=== PATIENT | male | born 1960 | race Caucasian/White ===

== ENCOUNTER → 2019-11-05 | Outpatient (CLI) | payer OTHER ==
[~2019-11-05] MED LIST: ABIR250T PO; EFFE37.5 PO; IBUP80TA PO; LOPE-39 PO; MAPA500C PO; PRED10PA2 PO; PRED5PAK PO; PRED5TA PO; VOLT1GEL15 TOP; XTAN40CA PO; ZYTI250T PO
--- NOTE | 2019-11-05 15:20 | REP ---
WHOLE BODY RADIONUCLIDE BONE SCAN: HISTORY: Neoplasm of bone of uncertain behavior. Positive MRI study dated October 13, 2019. TECHNIQUE: 22.0 mCi technetium 99m MDP is injected and standard whole body bone scan imaging is acquired. SCINTIGRAPHIC FINDINGS: There is a metastatic pattern of multifocal increased uptake in the axial skeleton. Most extensive involvement is as noted on MRI involving the right trisha pelvis. This involves the acetabular region, ischium and the supra-acetabular iliac bone. There is a lesion in the superior pubic ramus and symphysis on the right. Other sites include the sacrum, L5, L4 and L3, left intertrochanteric femur, the proximal humerus on the right, multiple bilateral posterior ribs and of the right skull base or mastoid region. Also noted is increased uptake in the right kidney compared to the left raising question of right-sided obstructive uropathy. Adenopathy is noted in the pelvis on review of the recent MRI study. IMPRESSION: Metastatic disease pattern. Most likely possibility is prostate malignancy with adenopathy and skeletal disease. However, other primary sites remain in the differential. There may be obstructive uropathy of the right kidney. Recommend CT scanning of the chest abdomen and pelvis. Preferably with IV contrast. Electronically Signed by Neeraj aKmara MD 11/05/2019 05:05 P
== END ==
LOC: M RAD 10:20
PROVIDERS: ATTEND Family Medicine
DX: C79.51 Secondary malignant neoplasm of bone (principal); R59.0 Localized enlarged lymph nodes
CPT/HCPCS: 78306; A9503

== ENCOUNTER → 2019-12-24 | Outpatient (CLI) | payer OTHER ==
[~2019-12-24] MED LIST changes: -EFFE37.5 PO
== END ==
LOC: M ONCR 09:54
PROVIDERS: ATTEND General Practice
DX: C61 Malignant neoplasm of prostate (principal); C79.9 Secondary malignant neoplasm of unspecified site

== ENCOUNTER → 2021-11-10 | Outpatient (CLI) | payer OTHER ==
[~2021-11-10] MED LIST changes: +ACET300T48 PO; +DICL1GEL3 TOP; +EFFE37.5 PO; +TRAM50TA2 PO
== END ==
LOC: M ONCR 14:38
PROVIDERS: ATTEND General Practice
DX: C79.51 Secondary malignant neoplasm of bone (principal); C61 Malignant neoplasm of prostate; F17.210 Nicotine dependence, cigarettes, uncomplicated; G89.3 Neoplasm related pain (acute) (chronic); R53.83 Other fatigue; Z79.51 Long term (current) use of inhaled steroids; Z79.899 Other long term (current) drug therapy; Z80.9 Family history of malignant neoplasm, unspecified; Z88.1 Allergy status to other antibiotic agents; Z91.030 Bee allergy status; Z92.29 Personal history of other drug therapy

== ENCOUNTER → 2021-12-01 | Outpatient (CLI) | payer OTHER ==
[~2021-12-01] MED LIST changes: +MORP15TA2 PO; +ONDA-83 PO
== END ==
LOC: M ONCR 14:28
PROVIDERS: ATTEND General Practice
DX: C79.51 Secondary malignant neoplasm of bone (principal); M21.372 Foot drop, left foot

== ENCOUNTER 2021-12-13 13:49 | Outpatient (RCR) | payer OTHER ==
[2021-12-18] MEDS ORDERED: MORP15TA2 PO (15:24)
[2021-12-19] MEDS ORDERED: MORP15TA2 PO (09:50)
== END 2021-12-17 ==
LOC: M ONCR 13:49
PROVIDERS: ATTEND General Practice
DX: C61 Malignant neoplasm of prostate (principal); C79.51 Secondary malignant neoplasm of bone
CPT/HCPCS: 77280; 77290; 77307; 77334; 77336; 77412; G0463

== ENCOUNTER → 2022-01-09 | Outpatient (CLI) | payer OTHER ==
[~2022-01-09] VITALS: Ht 172.7 cm; Wt 91.3 kg
[~2022-01-09] MED LIST changes: +ACET-1415 PO; +DULC10SU2 PR; +MIRA3350 PO; +PREG25CA2 PO; +SENN-80 PO
[2022-01-09 15:30] VITALS: BP 110/75
== END ==
LOC: M PAL 14:44
PROVIDERS: ATTEND Nurse Practitioner Adult Health
DX: C61 Malignant neoplasm of prostate (principal); C79.51 Secondary malignant neoplasm of bone; G89.3 Neoplasm related pain (acute) (chronic); F17.210 Nicotine dependence, cigarettes, uncomplicated; F12.20 Cannabis dependence, uncomplicated; K59.00 Constipation, unspecified; M25.572 Pain in left ankle and joints of left foot; M79.605 Pain in left leg; R53.83 Other fatigue; R11.0 Nausea; R63.0 Anorexia; Z79.891 Long term (current) use of opiate analgesic; Z79.899 Other long term (current) drug therapy; Z88.1 Allergy status to other antibiotic agents; Z91.030 Bee allergy status; Z92.3 Personal history of irradiation; Z80.8 Family history of malignant neoplasm of other organs or systems

== ENCOUNTER → 2022-02-08 | Outpatient (CLI) | payer OTHER ==
[~2022-02-08] MED LIST changes: +FURO20TA2 PO
== END ==
LOC: M PAL 14:44
PROVIDERS: ATTEND Nurse Practitioner Family
DX: C61 Malignant neoplasm of prostate (principal); C79.51 Secondary malignant neoplasm of bone; R22.43 Localized swelling, mass and lump, lower limb, bilateral; M79.672 Pain in left foot; G47.00 Insomnia, unspecified; K59.00 Constipation, unspecified; Z79.891 Long term (current) use of opiate analgesic; Z79.899 Other long term (current) drug therapy; Z88.1 Allergy status to other antibiotic agents; Z91.030 Bee allergy status

== ENCOUNTER → 2022-02-13 | Outpatient (CLI) | payer OTHER | LOC: M PAL 08:11 | PROVIDERS: ATTEND Nurse Practitioner Family | DX: C61 Malignant neoplasm of prostate (principal); C79.51 Secondary malignant neoplasm of bone; M79.672 Pain in left foot; G47.00 Insomnia, unspecified; R10.9 Unspecified abdominal pain; R82.998 Other abnormal findings in urine; K92.1 Melena; R19.7 Diarrhea, unspecified; Z51.5 Encounter for palliative care; Z79.891 Long term (current) use of opiate analgesic; Z79.899 Other long term (current) drug therapy; Z88.1 Allergy status to other antibiotic agents; Z91.030 Bee allergy status ==